=== PATIENT | female | born 1960 | race Caucasian/White ===

== ENCOUNTER 2024-08-27 22:42 | Emergency (ER) | payer BC, SELFPAY ==
[2024-08-27 22:45] VITALS: BP 163/83
--- NOTE | 2024-08-27 23:04 | ED.GENMED ---
History of Present Illness
General
Chief Complaint: Musculo-Skeletal Complaint
Source: patient
Exam Limitations: none
Time Seen by Provider: 08/27/24 22:58
History of Present Illness
History of Present Illness:
Patient jammed the left fourth and fifth toe on a chair. Deformity and pain. No other injury or complaint. Occurred about 1 hour ago.
Phy Exam
Physical Exam
Physical Exam:
General: Nontoxic appearing in no distress
Skin: Warm and dry, no rash
Neuro: Alert, nontoxic, grossly nonfocal
Psychiatric: Good eye contact and appropriate
Musculoskeletal: Lateral deformity to the left fifth toe and mild deformity to left fourth toe. Third second and first toe unremarkable. Foot nontender. Ankle stable. No open wound. Very superficial abrasion of the third toe at the nail but
this was from cutting the nail earlier.
Course
Orders/Labs/Results
Orders:
Orders
08/27/24 23:03
CR Foot - Left Min 3 Views Urgent
Reason For Exam: Deformity left fourth and fifth toes
08/28/24 00:46
Eleuterio Tape Left-Treatment ONCE
Vital Signs
Initial and Last Documented VS:
Initial Vital Signs
Temp Pulse Resp BP Pulse Ox
98.2 F 78 16 163/83 100
08/27/24 22:45 08/27/24 22:45 08/27/24 22:45 08/27/24 22:45 08/27/24 22:45
Last Documented Vital Signs
Temp Pulse Resp BP Pulse Ox
98.2 F 78 16 163/83 100
08/27/24 22:45 08/27/24 22:45 08/27/24 22:45 08/27/24 22:45 08/27/24 22:45
Procedures
Joint/Fracture Reduction
Left Fifth Toe:
Indication for procedure:: Reduction
Procedure completed by: Myself
Consent form signed: No
Joint reduced: without anesthesia
Anesthesia/sedation: 1% Lidocaine and Other (Digital block)
Injury was: closed
Further treatement: needs re-check only
Post reduction exam: stable
Capillary Refill: normal
*Radiology
Radiology exam reviewed: preliminary read by ED provider (Angulated fifth toe fracture. Nondisplaced fourth toe fracture)
*Pulse Oximetry
Patient hypoxic: no
*Critical Care Note
Total Time (30-74mins, 75-104mins- exclusive of procedures): Not Applicable
Update Note
Update Note:
Toe reduced. Good alignment. Discharged to follow-up
ED Attending Note
-
Portions of this chart may have been created with voice recognition software.� Occasional wrong word or��sound alike� substitutions may have occurred due to the inherent limitations of voice recognition software.
Discharge Plan
Departure
Patient Disposition: Home (Routine Discharge)
Date of Disposition: 08/28/24
Time of Disposition: 00:48
Patient with high blood pressure during this ER visit?: Yes
Discharge Problem:
Fracture left fourth and fifth toe
Instructions: Toe Fracture ED, BLOOD PRESSURE
Referrals:
Edson Umana MD [Family Provider] -
Hugo Servin MD [Active] - Follow up in 2-3 days
Interventions
Interventions:
*Risk Screen - Suicide Last Done: 08/27/24 22:45
*General Assessment Last Done: 08/27/24 22:45
*Neglect/Abuse Screening Last Done: 08/27/24 22:45
Discharge Date and Time
Print Language: [place]
== END 2024-08-28 01:00 | disposition home or self-care (01) ==
LOC: EMR 22:42
PROVIDERS: EMERGENCY PHYSICIAN Emergency Medicine; FAMILY PHYSICIAN Internal Medicine
DX: S92.512A Displaced fracture of proximal phalanx of left lesser toe(s), initial encounter for closed fracture (principal); X58.XXXA Exposure to other specified factors, initial encounter
CPT/HCPCS: 99283; 28515; 73630